=== PATIENT | female | born 1955 | race Caucasian/White ===

== ENCOUNTER 2020-06-14 13:23 | Observation (INO) | payer MEDICARE ==
[2020-06-14 15:00] VITALS: BMI 35.6
--- NOTE | 2020-06-14 15:30 | PDOC.HHP ---
Hospitalist HPI - History of Present Illness Chest pain History of Present Illness: Ms. Sparks is a 64-year-old female with past medical history of hypertension, hyperlipidemia, OR status post cardiac stenting in 2008, GI bleed in 2011, iron deficiency anemia, Stanley Sorin syndrome, nonspecific autoimmune disorder who initially presented to [facility] emergency room for chest pain. Patient reports that she recently went on a trip to [place] to see her grandchildren and after eating dinner she noticed a globus sensation in her chest associated with a chest pressure and discomfort that lasted approximately 30 minutes. Patient reports that since that first episode last week she has had several recurrent episodes including 2 episodes of this day of admission which lasted about 5 to 10 minutes. Patient reports that she gets short of breath during these episodes and feels very anxious she also feels the need to evacuate her bowels afterwards. She denies nausea vomiting or diarrhea. Denies melena or hematochezia. She does have a history of a OR with cardiac stenting of her LAD which was done in 2008. She follows with Dr. Muro of cardiology. She reports that she recently had an echocardiogram in January, but is unsure of her last stress test. In emergency room initial vital signs 139/79, 86, 18, 98.1, 97% on room air. H/H 11.3/36.0. WBC 9.5. BUN/CR 16/0.83. Glucose 84. Sodium 141, potassium 4.0. Initial troponin 0 0.010. EKG showed normal sinus rhythm with no ST changes. Patient is currently resting in bed and denies any chest pain palpitations or shortness of breath. Hospitalist ROS - Review of Systems Constitutional: reports: malaise. denies: fever, chills, sweats, weakness, other Eyes: denies: pain, vision change, conjunctivae inflammation, eyelid inflammation, redness, other ENT: denies: ear pain, ear discharge, nose pain, nose discharge, nose congestion, mouth pain, mouth swelling, throat pain, throat swelling, other Respiratory: denies: cough, dry, shortness of breath, hemoptysis, SOB with excertion, pleuritic pain, sputum, wheezing, other Cardiovascular: reports: chest pain. denies: palpitations, orthopnea, paroxysmal noc. dyspnea, edema, light headedness, other Gastrointestinal: reports: abdominal pain. denies: nausea, vomiting, diarrhea, constipation, melena, hematochezia, other Genitourinary: denies: dysuria, frequency, incontinence, hematuria, retention, other Musculoskeletal: denies: neck pain, shoulder pain, arm pain, back pain, hand pain, leg pain, foot pain, other Skin: denies: rash, lesions, liz, bruising, other Neurological: denies: weakness, numbness, incoordination, change in speech, confusion, seizures, other - Medication Medications: Home medications include Acetamide Bystolic Spironolactone Iron Magnesium Vitamin C Aspirin Patient has multiple drug allergies and has a history of Rice-Sorin syndrome which was thought to be caused by Benadryl versus ABEL inhibitor use versus NSAIDs. Patient's allergies include ABEL inhibitors, penicillins, ARB use, codeine, Benadryl, losartan, indomethacin, many others. Hospitalist History - Past Medical History Other Medical History: Past medical history of OR in 2009 with cardiac stent to LAD Hypertension Hyperlipidemia Iron deficiency anemia Stanley Sorin syndrome Nonspecific autoimmune disorder with elevated ANAquestion some type of scleroderma - Past Surgical History Other Surgical History: Past surgical history includes Yazmin fundoplication Cardiac stent to LAD in 2009 Cholecystectomy - Family History Other Family History: Patient denies family history of cardiac disease - Social History Smoking Status: Never smoker Alcohol: reports: None Drugs: reports: none Living Situation: With Family Activity level: independent ambulation - Exam General Appearance: NAD, awake alert Eye: PERRL, anicteric sclera ENT: normocephalic atraumatic, no oropharyngeal lesions, moist mucosa Neck: supple, symmetric, no JVD, no thyromegaly, no lymphadenopathy, no carotid bruit Heart: RRR, no murmur, no gallops, no rubs, normal peripheral pulses Respiratory: CTAB, no wheezes, no rales, no ronchi, normal chest expansion, no tachypnea, normal percussion Gastrointestinal: soft, non-tender, non-distended, normal bowel sounds, no palpable masses, no hepatomegaly, no splenomegaly, no bruit Extremities: no cyanosis, no clubbing, no edema Skin: normal turgor, no lesions, no rashes Neurological: cranial nerve grossly intact, normal sensation to touch, no weakness, no focal deficits, no new deficit Musculoskeletal: normal tone, normal strength, no muscle wasting Psychiatric: normal affect, normal behavior, A&O x 3 Hospitalist H&P A/P - Plan Plan: 64-year-old female past medical history of hypertension, hyperlipidemia, OR with cardiac stenting, iron deficiency anemia, autoimmune disease with elevated SAM presents for chest pain rule out. Negative cardiac markers and no ischemic changes on EKG. Chest pain Patient reports multiple episodes of chest/epigastric pain which she describes as a pressure. Initial troponin 0 0.010. EKG showed no ischemic changes normal sinus rhythm. Patient does have a significant cardiac history with stent to LAD in 2008. Patient follows with Dr. Muro. Will trend troponins Place patient on telemetry and if troponins remain low schedule patient for stress test in a.m. Plan Trend troponin Telemetry monitoring ASA 325 mg SL nitro as needed N.p.o. at midnight for stress test in morning Hypertension History of hypertension on Bystolic, spironolactone, lisinopril hydrochlorothiazide. We will continue these once dosages are confirmed. Hyperlipidemia History of hyperlipidemia on ezetimibe. Patient has allergy to statins. Iron deficiency anemia History of iron deficiency anemia. Patient's H&H stable at 11.3/36.0. We will continue home iron supplement. DVT prophylaxisSCDs Full codeMDM is patient's Case discussed with attending physician, Dr. Santana.
[2020-06-14] MEDS ORDERED: Nitroglycerin 0.4 MG TAB (25 Tab Bottle) SL PRN (16:16)
[2020-06-14] MEDS ORDERED: Aspirin 325 MG TAB PO SCH (16:30)
[2020-06-14 17:55] LABS: Troponin I Less than 0.010 ng/mL (< 0.028)
[2020-06-14 20:01] LABS: Troponin I Less than 0.010 ng/mL (< 0.028)
[2020-06-14] MEDS ORDERED: Nebivolol HCl 5 MG TAB PO SCH (21:30)
[2020-06-15 04:53] LABS: Cardiac Risk 3.3 (Less than 4.5)
[2020-06-15] MEDS ORDERED: Nebivolol HCl 5 MG TAB PO SCH ×2 (09:00→21:00)
[2020-06-15] MEDS ORDERED: Aspirin Chewable 81 MG TAB PO SCH (09:00)
[2020-06-15] MEDS ORDERED: Ezetimibe 10 MG TAB PO SCH (09:00)
[2020-06-15] MEDS ORDERED: ADENOSINE 60 MG/20 ML VIAL ONE (12:51)
[2020-06-15 12:52] LABS: SARS-CoV-2 MS2 Positive; SARS-CoV-2 N Gene Negative; SARS-CoV-2 S Gene Negative; SARS-CoV-2 by NAA Not Detected (NotDetected); SARS-CoV-2 orf1ab Negative
[2020-06-15] MEDS: Spironolactone 25 MG TAB PO SCH ×2 (13:45→13:48)
--- NOTE | 2020-06-15 14:07 | NM ---
EXAM: CARDIAC SPECT HISTORY: Chest pain, NE, coronary disease, PTCA, stent, hypertension, shortness of breath TECHNIQUE: A myocardial perfusion scan was performed using the single isotope 1 day protocol with florence hnetium 99m sestamibi. [10 mCi] was injected intravenously for the rest exam followed by 30 mCifor the stress study. Pharmacologic stress with adenosine was monitored and interpreted by the nurse practitioner FINDINGS: Homogeneous tracer distribution is seen in the myocardial segments on stress and rest image s without fixed or reversible defects. Gated SPECT LVEF: 78% Wall motion exam: Normal IMPRESSION: Normal myocardial perfusion scan
[2020-06-15 15:33] VITALS: BP 121/58; TEMP 97.7
--- NOTE | 2020-06-15 15:49 | PDOC.DS.DS ---
Provider - Provider Date of Admission: 06/14/20 14:27 Date of Discharge: 06/15/20 Admitting Provider: Alejandro Santana DO Primary Care Physician: Lily Sewell MD Course - Hospital Course Hospital Course: Discharge diagnosis: 1. Chest pain 2. Chest pain most likely secondary to musculoskeletal etiology 3. COVID-19 PCR test negative Hospital course: Patient is a pleasant 64-year-old lady who was admitted to the hospital on June 14, 2020 for chest pain. She had a nuclear stress test, which was normal. Gated SPECT left ventricular ejection fraction was 78%. Pulmonary embolism was ruled out with a negative D-dimer. She is being discharged home in a stable condition. No change was made to her preadmission home medications. Discharge destination: Home - Physical Exam Vitals: Vital Signs (12 hours) Temp Pulse Resp BP BP Pulse Ox 06/15/20 15:32 97.7 F 75 16 121/58 L 98 06/15/20 11:03 98.6 F 67 18 141/73 H 98 06/15/20 07:45 98.1 F 83 18 129/79 99 06/15/20 04:00 98.6 F 69 16 113/52 L 99 Weight Weight 188 lb 11.2 oz Physical Exam: The patient was seen and examined on the day of discharge. Patient denies chest pain or shortness of breath. Vital signs are stable. S1 and S2 are heard. Lungs are clear to auscultation bilaterally. Plan - Discharge Medications Home Medications: Medication Instructions Recorded Confirmed Type Ascorbic Acid/Multivit-Min 1,000 mg PO DAILY 06/14/20 06/14/20 History [Emergen-C 1,000 mg Packet] Aspirin Chewable [Aspirin Chewable 81 mg PO HS 06/14/20 06/14/20 History Tablet] Cholecalciferol (Vitamin D3) 1,000 units PO DAILY 06/14/20 06/14/20 History [Vitamin D3] Ezetimibe [Zetia] 10 mg PO DAILY 06/14/20 06/14/20 History Magnesium Oxide 400 mg PO PRN PRN 06/14/20 06/14/20 History Multivit,Calc,Mins/Iron/Folic 1 tablet PO DAILY 06/14/20 06/14/20 History [One-A-Day Women's] Nebivolol HCl [Bystolic] 5 mg PO HS 06/14/20 06/14/20 History Spironolactone [Aldactone] 25 mg PO DAILY 06/14/20 06/14/20 History Zinc 20 mg PO Q2DAYS 06/14/20 06/14/20 History Allergies: ABEL Inhibitors Allergy (Verified 06/14/20 14:52) ampicillin Allergy (Verified 06/14/20 14:52) ARB-Angiotensin Receptor Antagonist Allergy (Verified 06/14/20 14:52) codeine Allergy (Verified 06/14/20 14:52) diphenhydramine [From Benadryl] Allergy (Verified 06/14/20 14:52) erythromycin base Allergy (Verified 06/14/20 14:52) hydrochlorothiazide Allergy (Verified 06/14/20 14:52) hydrocodone Allergy (Verified 06/14/20 14:52) indomethacin Allergy (Verified 06/14/20 14:52) pantoprazole Allergy (Verified 06/14/20 14:52) Penicillins Allergy (Verified 06/14/20 14:52) pseudoephedrine Allergy (Verified 06/14/20 14:52) simvastatin Allergy (Verified 06/14/20 14:52) Sulfa (Sulfonamide Antibiotics) Allergy (Verified 06/14/20 14:52) Tetracyclines Allergy (Verified 06/14/20 14:52) varicella virus vaccine live Allergy (Verified 06/14/20 14:52) - Follow up Plan Referrals: Lily Sewell MD [Primary Care Provider] - 7 Days (Please follow-up within 7 days.) Disposition: HOME Quality - Care Measures CORE MEASURES:: N/A
[2020-06-15] MEDS ORDERED: FLU VACC QS2020-21(65YR UP)/PF 240 MCG/0.7 ML SYRINGE IM ONE (16:00)
--- NOTE | 2020-06-30 23:14 | STRESS ---
Acquisition Time: 2020-06-15 12:05:02 Total Exercise Time: 00:04:00 Test Indications: CHEST PAIN Medications: Protocol: ADENOSINE Max HR: 106 BPM 68% of Pred: 155 BPM Max BP: 138/070 mmHG Max Work Load: 1.0 METS RESTING ECG: NORMAL SINUS RHYTHM AT 67 BPM SYMPTOMS: DYSPNEA ON EXERTION NORMAL BLOOD PRESSURE RESPONSE ECTOPY: NONE ECG RESPONSE: NO SIGNIFICANT CHANGES INTERPRETATION: AWAIT NUCLEAR IMAGES FOR DEFINITIVE DIAGNOSIS Confirmed by Marco OBRIEN ([id number]) on 06/30/2020 11:14:31 PM Referred By: Bentley LOBATO Confirmed By:Marco OBRIEN
== END 2020-06-15 15:20 | disposition home or self-care (01) ==
LOC: 2NO 14:27
PROVIDERS: ADMIT Family Medicine; ATTEND Family Medicine
DX: R07.89 Other chest pain (principal); D89.9 Disorder involving the immune mechanism, unspecified; I10 Essential (primary) hypertension; E78.5 Hyperlipidemia, unspecified; D50.9 Iron deficiency anemia, unspecified; I25.2 Old myocardial infarction; L51.1 Stevens-Johnson syndrome; Z79.82 Long term (current) use of aspirin; Z79.899 Other long term (current) drug therapy; Z88.0 Allergy status to penicillin; Z88.1 Allergy status to other antibiotic agents; Z88.2 Allergy status to sulfonamides; Z88.5 Allergy status to narcotic agent; Z88.7 Allergy status to serum and vaccine; Z88.8 Allergy status to other drugs, medicaments and biological substances; Z95.5 Presence of coronary angioplasty implant and graft; Z20.828 Contact with and (suspected) exposure to other viral communicable diseases
CPT/HCPCS: 78452; 80061; 84484; 85379; 93017; 94760; A9500; G0378 ×2; U0003; 36415; 87635; J0153

== ENCOUNTER 2021-06-05 16:53 | Inpatient (IN) | payer MEDICARE, OTHER ==
[2021-06-05 17:13] LABS: #Eosinphils 0.1 thou/uL (0.0-0.7); #Lymphocytes 2.9 thou/uL (1.20-3.40); #Monocytes 0.7 thou/uL (0.11-0.59); #Neutrophils 5.8 thou/uL (1.40-6.50); %Basophils 0.5 % (0.0-1.0); %Eosinophils 1.5 % (0.0-10.0); %Lymphocytes 30.1 % (21.0-51.0); %Monocytes 6.9 % (0.0-10.0); Hemoglobin 10.1 g/dL (12.0-16.0); Mean Corpuscular HGB CONC 31.6 g/dL (32.0-36.0); Mean Corpuscular Hemoglobin 24.4 pg (27.0-31.0); Mean Corpuscular Volume 77.1 fL (78.0-98.0); Mean Platelet Volume 8.5 fL (7.4-10.4); Platelet Count 368 thou/uL (130-400); RBC Distribution Width 18.5 % (11.5-14.5); Red Blood Cell (RBC) Count 4.14 mill/uL (4.20-5.40); White Blood Cell (WBC) Count 9.6 thou/uL (4.8-10.8)
[2021-06-05 17:42] LABS: ALT (SGPT) 10 U/L (8-55); AST (SGOT) 14 U/L (5-34); Albumin 4.4 g/dL (3.4-4.8); Alkaline Phosphatase 62 U/L (40-110); Anion Gap 11 mmol/L (10-20); BUN (Urea Nitrogen) 13 mg/dL (9.8-20.1); Bilirubin, Total 0.6 mg/dL (0.2-1.2); Calc. Creatinine Clearance 0 mL/min (70-130); Calcium 10.3 mg/dL (7.8-10.44); Carbon Dioxide 28 mmol/L (23-31); Chloride 106 mmol/L (98-107); Globulin 3.2 g/dL (2.4-3.5); Glucose 96 mg/dL (80-115); Potassium 4.5 mmol/L (3.5-5.1); Protein, Total 7.6 g/dL (5.8-8.1); Sodium 140 mmol/L (136-145)
[2021-06-05] MEDS ORDERED: Aspirin Chewable 81 MG TAB ONE ×2 (19:56→19:57)
[2021-06-05 21:20] LABS: Troponin I Less than 0.010 ng/mL (< 0.028)
[2021-06-05] MEDS ORDERED: Ondansetron PF 4 MG/2 ML Vial IVP PRN (21:54)
[2021-06-05] MEDS ORDERED: Nitroglycerin 0.4 MG TAB (25 Tab Bottle) SL PRN (21:54)
[2021-06-05] MEDS ORDERED: Ezetimibe 10 MG TAB PO SCH (23:45)
[2021-06-05] MEDS ORDERED: Nebivolol HCl 5 MG TAB PO SCH (23:45)
[2021-06-05 23:48] VITALS: BMI 32.5
[2021-06-06 00:02] LABS: Troponin I Less than 0.010 ng/mL (< 0.028)
[2021-06-06 05:27] LABS: #Eosinphils 0.3 thou/uL (0.0-0.7); #Lymphocytes 2.3 thou/uL (1.20-3.40); #Monocytes 0.9 thou/uL (0.11-0.59); #Neutrophils 3.8 thou/uL (1.40-6.50); %Basophils 0.4 % (0.0-1.0); %Eosinophils 4.3 % (0.0-10.0); %Lymphocytes 31.1 % (21.0-51.0); %Monocytes 12.1 % (0.0-10.0); %Neutrophils 52.1 % (42.0-75.0); Hemoglobin 9.3 g/dL (12.0-16.0); Mean Corpuscular HGB CONC 30.8 g/dL (32.0-36.0); Mean Corpuscular Hemoglobin 24.5 pg (27.0-31.0); Mean Corpuscular Volume 79.4 fL (78.0-98.0); Mean Platelet Volume 8.6 fL (7.4-10.4); Platelet Count 329 thou/uL (130-400); RBC Distribution Width 18.9 % (11.5-14.5); Red Blood Cell (RBC) Count 3.81 mill/uL (4.20-5.40); White Blood Cell (WBC) Count 7.4 thou/uL (4.8-10.8)
[2021-06-06 05:44] LABS: Anion Gap 12 mmol/L (10-20); BUN (Urea Nitrogen) 13 mg/dL (9.8-20.1); Calc. Creatinine Clearance 86 mL/min (70-130); Calcium 9.6 mg/dL (7.8-10.44); Carbon Dioxide 24 mmol/L (23-31); Chloride 108 mmol/L (98-107); Glucose 83 mg/dL (80-115); Iron 16 ug/dL (50-170); Iron Binding Capacity, Total 413 mcg/dL (265-497); Potassium 3.9 mmol/L (3.5-5.1); Sodium 140 mmol/L (136-145)
[2021-06-06 05:47] LABS: Iron 16 ug/dL (50-170); Iron Binding Capacity, Total 416 mcg/dL (265-497)
[2021-06-06] MEDS: Spironolactone 25 MG TAB PO SCH (08:01)
[2021-06-06] MEDS: Aspirin Chewable 81 MG TAB PO SCH (08:01)
[2021-06-06] MEDS ORDERED: ADENOSINE 60 MG/20 ML VIAL ONE (11:59)
[2021-06-06] MEDS: Omeprazole [Omeprazole] 20 MG Capsule.Dr PO SCH (13:42)
[2021-06-06 15:38] LABS: SARS-CoV-2 PCR by NAA Not Detected (NotDetected)
[2021-06-06] MEDS: Simethicone Chewable 80 MG TAB PO PRN (16:55)
[2021-06-06] MEDS: Ezetimibe 10 MG TAB PO SCH (20:15)
[2021-06-06] MEDS: Nebivolol HCl 5 MG TAB PO SCH (21:53)
[2021-06-07] MEDS: Acetaminophen 325 MG TAB PO PRN (04:53)
[2021-06-07 05:01] LABS: #Basophils 0.1 thou/uL (0.0-0.2); #Eosinphils 0.3 thou/uL (0.0-0.7); #Lymphocytes 2.7 thou/uL (1.20-3.40); #Monocytes 0.6 thou/uL (0.11-0.59); #Neutrophils 3.8 thou/uL (1.40-6.50); %Basophils 0.8 % (0.0-1.0); %Eosinophils 4.2 % (0.0-10.0); %Lymphocytes 35.8 % (21.0-51.0); %Monocytes 8.2 % (0.0-10.0); Hemoglobin 9.8 g/dL (12.0-16.0); Mean Corpuscular HGB CONC 30.8 g/dL (32.0-36.0); Mean Corpuscular Hemoglobin 24.2 pg (27.0-31.0); Mean Corpuscular Volume 78.4 fL (78.0-98.0); Mean Platelet Volume 8.7 fL (7.4-10.4); Platelet Count 340 thou/uL (130-400); RBC Distribution Width 18.7 % (11.5-14.5); Red Blood Cell (RBC) Count 4.04 mill/uL (4.20-5.40); White Blood Cell (WBC) Count 7.4 thou/uL (4.8-10.8)
[2021-06-07 05:13] LABS: Anion Gap 9 mmol/L (10-20); BUN (Urea Nitrogen) 13 mg/dL (9.8-20.1); Calc. Creatinine Clearance 80 mL/min (70-130); Calcium 9.9 mg/dL (7.8-10.44); Carbon Dioxide 29 mmol/L (23-31); Chloride 106 mmol/L (98-107); Glucose 109 mg/dL (80-115); Potassium 3.9 mmol/L (3.5-5.1); Sodium 140 mmol/L (136-145)
[2021-06-07] MEDS: Aspirin Chewable 81 MG TAB PO SCH (08:12)
[2021-06-07] MEDS: Omeprazole [Omeprazole] 20 MG Capsule.Dr PO SCH (08:12)
[2021-06-07] MEDS: Spironolactone 25 MG TAB PO SCH (08:12)
[2021-06-07] MEDS: Simethicone Chewable 80 MG TAB PO PRN (10:13)
[2021-06-07] MEDS ORDERED: Communication Order-Pharmacy FS SCH (16:15)
[2021-06-07] MEDS: Ezetimibe 10 MG TAB PO SCH (21:41)
[2021-06-07] MEDS: Nebivolol HCl 5 MG TAB PO SCH (21:41)
[2021-06-08 05:58] LABS: #Eosinphils 0.2 thou/uL (0.0-0.7); #Lymphocytes 2.8 thou/uL (1.20-3.40); #Monocytes 0.7 thou/uL (0.11-0.59); #Neutrophils 4.4 thou/uL (1.40-6.50); %Basophils 0.5 % (0.0-1.0); %Monocytes 8.6 % (0.0-10.0); %Neutrophils 53.9 % (42.0-75.0); Mean Corpuscular HGB CONC 30.6 g/dL (32.0-36.0); Mean Corpuscular Hemoglobin 23.8 pg (27.0-31.0); Mean Corpuscular Volume 77.5 fL (78.0-98.0); Mean Platelet Volume 8.4 fL (7.4-10.4); Platelet Count 354 thou/uL (130-400); RBC Distribution Width 18.4 % (11.5-14.5); White Blood Cell (WBC) Count 8.2 thou/uL (4.8-10.8)
[2021-06-08] MEDS: Omeprazole [Omeprazole] 20 MG Capsule.Dr PO SCH (06:05)
[2021-06-08] MEDS: Aspirin Chewable 81 MG TAB PO SCH (06:06)
[2021-06-08 06:27] LABS: Anion Gap 13 mmol/L (10-20); BUN (Urea Nitrogen) 14 mg/dL (9.8-20.1); Calc. Creatinine Clearance 80 mL/min (70-130); Calcium 9.8 mg/dL (7.8-10.44); Carbon Dioxide 24 mmol/L (23-31); Chloride 106 mmol/L (98-107); Glucose 111 mg/dL (80-115); Potassium 3.9 mmol/L (3.5-5.1); Sodium 139 mmol/L (136-145)
[2021-06-08] MEDS ORDERED: Communication Order-Pharmacy FS SCH (09:00)
[2021-06-08] MEDS: Sodium Chloride 0.9% 1,000 ML IV SCH ×2 (09:24→17:53)
[2021-06-08] MEDS ORDERED: Fentanyl 100 MCG/2 ML VIAL ONE (09:46)
[2021-06-08] MEDS ORDERED: Midazolam HCl 2 mg/2 ml Vial ONE (09:47)
[2021-06-08] MEDS ORDERED: Heparin 10,000 UNITS/ 10 ML VIAL ONE ×2 (09:49→10:47)
[2021-06-08] MEDS ORDERED: Nitroglycerin 100MG/250ML BOT 250 ML ONE (10:09)
[2021-06-08] MEDS ORDERED: Iopamidol 370 76% 100 ML VIAL ONE (10:57)
[2021-06-08] MEDS ORDERED: Iopamidol 370 76% 50 ML VIAL FS ONE (10:57)
[2021-06-08] MEDS ORDERED: Clopidogrel Bisulfate 300 MG TAB ONE (11:17)
[2021-06-08] MEDS ORDERED: Nitroglycerin 2% Ointment 1 INCH/1 GM Packet ONE (11:18)
[2021-06-08] MEDS ORDERED: Nitroglycerin 4.9 GM Bottle ONE (11:56)
[2021-06-08] MEDS ORDERED: Clopidogrel Bisulfate 300 MG TAB PO SCH (12:15)
[2021-06-08] MEDS: Simethicone Chewable 80 MG TAB PO PRN (15:29)
[2021-06-08] MEDS: Spironolactone 25 MG TAB PO SCH (17:27)
[2021-06-08] MEDS: Acetaminophen 325 MG TAB PO PRN ×2 (18:07→22:15)
[2021-06-08] MEDS: Ezetimibe 10 MG TAB PO SCH (21:28)
[2021-06-09] MEDS: Nebivolol HCl 5 MG TAB PO SCH ×2 (03:30→22:38)
[2021-06-09 05:37] LABS: #Eosinphils 0.2 thou/uL (0.0-0.7); #Lymphocytes 2.4 thou/uL (1.20-3.40); #Monocytes 0.6 thou/uL (0.11-0.59); #Neutrophils 5.4 thou/uL (1.40-6.50); %Basophils 0.5 % (0.0-1.0); %Eosinophils 2.8 % (0.0-10.0); %Lymphocytes 27.8 % (21.0-51.0); %Monocytes 6.7 % (0.0-10.0); %Neutrophils 62.2 % (42.0-75.0); Hemoglobin 9.5 g/dL (12.0-16.0); Mean Corpuscular HGB CONC 30.8 g/dL (32.0-36.0); Mean Corpuscular Hemoglobin 24.2 pg (27.0-31.0); Mean Corpuscular Volume 78.6 fL (78.0-98.0); Mean Platelet Volume 8.5 fL (7.4-10.4); Platelet Count 345 thou/uL (130-400); RBC Distribution Width 18.6 % (11.5-14.5); Red Blood Cell (RBC) Count 3.91 mill/uL (4.20-5.40); White Blood Cell (WBC) Count 8.7 thou/uL (4.8-10.8)
[2021-06-09 05:55] LABS: ALT (SGPT) 9 U/L (8-55); AST (SGOT) 14 U/L (5-34); Alkaline Phosphatase 53 U/L (40-110); Anion Gap 11 mmol/L (10-20); BUN (Urea Nitrogen) 9 mg/dL (9.8-20.1); Bilirubin, Total 1.5 mg/dL (0.2-1.2); Calc. Creatinine Clearance 82 mL/min (70-130); Calcium 9.2 mg/dL (7.8-10.44); Carbon Dioxide 25 mmol/L (23-31); Chloride 107 mmol/L (98-107); Globulin 2.5 g/dL (2.4-3.5); Glucose 105 mg/dL (80-115); Potassium 4.1 mmol/L (3.5-5.1); Protein, Total 6.5 g/dL (5.8-8.1); Sodium 139 mmol/L (136-145)
[2021-06-09 06:05] LABS: Troponin I 0.108 ng/mL (< 0.028)
[2021-06-09] MEDS: Aspirin Chewable 81 MG TAB PO SCH (09:18)
[2021-06-09] MEDS: Ferrous Sulfate 325 MG TAB PO SCH (09:18)
[2021-06-09] MEDS: Clopidogrel Bisulfate 75 MG TAB PO SCH (09:19)
[2021-06-09] MEDS: Omeprazole [Omeprazole] 20 MG Capsule.Dr PO SCH (09:19)
[2021-06-09] MEDS ORDERED: Fentanyl 100 MCG/2 ML VIAL ONE ×2 (13:39→16:17)
[2021-06-09] MEDS: Fentanyl 100 MCG/2 ML VIAL SLOW IVP SCH ×2 (13:47→13:56)
[2021-06-09] MEDS: Fentanyl 100 MCG/2 ML VIAL SLOW IVP PRN ×4 (14:11→14:57)
[2021-06-09] MEDS ORDERED: Fentanyl 100 MCG/2 ML VIAL SLOW IVP SCH (14:25)
[2021-06-09] MEDS ORDERED: Phenylephrine 10 MG/ML VIAL ONE ×2 (16:17→17:02)
[2021-06-09] MEDS ORDERED: Heparin 5,000 UNITS/ML VIAL ONE (16:37)
[2021-06-09] MEDS ORDERED: Esmolol 100 MG/10 ML VIAL ONE (17:02)
[2021-06-09] MEDS ORDERED: Ondansetron PF 4 MG/2 ML Vial ONE (17:02)
[2021-06-09] MEDS ORDERED: Lidocaine 1% PF 5 ML VIAL ONE (17:02)
[2021-06-09] MEDS ORDERED: Dexamethasone 20 MG/5 ML VIAL ONE (17:02)
[2021-06-09] MEDS ORDERED: PROPOFOL 200 MG/20 ML VIAL ONE (17:02)
[2021-06-09] MEDS ORDERED: Glycopyrrolate 0.2 MG/ML 5 ML SYRINGE ONE (17:02)
[2021-06-09] MEDS ORDERED: Succinylcholine 200 MG/10 ml SYRINGE FS ONE (17:02)
[2021-06-09] MEDS ORDERED: ePHEDrine 50 MG/ML VIAL ONE (17:02)
[2021-06-09] MEDS ORDERED: EPINEPHrine 1 MG/ML AMP ONE (17:19)
[2021-06-09] MEDS ORDERED: Bupivacaine PF 0.5% 30 ML VIAL ONE ×2 (17:19→17:22)
[2021-06-09] MEDS ORDERED: Labetalol HCl 100 MG/20 ML VIAL ONE (18:15)
[2021-06-09] MEDS ORDERED: traMADol HCl 50 MG TAB PO PRN (18:52)
[2021-06-09] MEDS ORDERED: Atorvastatin Calcium 40 MG TAB PO SCH (21:00)
[2021-06-09] MEDS: Acetaminophen 325 MG TAB PO PRN (22:40)
[2021-06-09] MEDS: Ezetimibe 10 MG TAB PO SCH (22:41)
[2021-06-10 05:48] LABS: Troponin I 0.027 ng/mL (< 0.028)
[2021-06-10 09:26] LABS: #Lymphocytes 1.1 thou/uL (1.20-3.40); #Monocytes 0.6 thou/uL (0.11-0.59); #Neutrophils 9.9 thou/uL (1.40-6.50); %Eosinophils 0.1 % (0.0-10.0); %Lymphocytes 9.2 % (21.0-51.0); %Monocytes 5.2 % (0.0-10.0); %Neutrophils 85.6 % (42.0-75.0); Hemoglobin 9.2 g/dL (12.0-16.0); Mean Corpuscular HGB CONC 29.4 g/dL (32.0-36.0); Mean Corpuscular Hemoglobin 23.1 pg (27.0-31.0); Mean Corpuscular Volume 78.5 fL (78.0-98.0); Mean Platelet Volume 8.8 fL (7.4-10.4); Platelet Count 325 thou/uL (130-400); RBC Distribution Width 18.5 % (11.5-14.5); Red Blood Cell (RBC) Count 3.97 mill/uL (4.20-5.40); White Blood Cell (WBC) Count 11.6 thou/uL (4.8-10.8)
[2021-06-10 09:36] LABS: Anion Gap 11 mmol/L (10-20); BUN (Urea Nitrogen) 11 mg/dL (9.8-20.1); Calc. Creatinine Clearance 85 mL/min (70-130); Calcium 9.9 mg/dL (7.8-10.44); Carbon Dioxide 24 mmol/L (23-31); Chloride 107 mmol/L (98-107); Glucose 137 mg/dL (80-115); Potassium 4.1 mmol/L (3.5-5.1); Sodium 138 mmol/L (136-145)
[2021-06-10] MEDS: Aspirin Chewable 81 MG TAB PO SCH (09:39)
[2021-06-10] MEDS: Ferrous Sulfate 325 MG TAB PO SCH (09:39)
[2021-06-10] MEDS: Clopidogrel Bisulfate 75 MG TAB PO SCH (09:39)
[2021-06-10] MEDS: Omeprazole [Omeprazole] 20 MG Capsule.Dr PO SCH (09:39)
[2021-06-10 10:05] LABS: Hypochromia SLIGHT = 6-15 cells (100X) (0-5/hpf); MDiff Complete? YES; Microcytosis SLIGHT = 6-15 cells (100X) (0-5/hpf); Polychromasia SLIGHT = 2-3 cells (100X) (0-2/hpf)
[2021-06-10 12:25] VITALS: BP 113/57; TEMP 98.1
[2021-06-10] MEDS ORDERED: Atorvastatin Calcium 20 MG TAB PO SCH (21:00)
[2021-06-10] MEDS ORDERED: Atorvastatin Calcium 40 MG TAB PO SCH (21:00)
== END 2021-06-10 14:05 | disposition home or self-care (01) | DRG 247 ==
LOC: ERS 16:53 → 2SW 20:18 → OBSVTOIN 06-08 15:21
PROVIDERS: ADMIT Internal Medicine; ATTEND Hospitalist
PROC: 027034Z Dilation of Coronary Artery, One Artery with Drug-eluting Intraluminal Device, Percutaneous Approach (ICD-10-PCS; principal; 2021-06-08)
PROC: 4A023N7 Measurement of Cardiac Sampling and Pressure, Left Heart, Percutaneous Approach (ICD-10-PCS; 2021-06-08)
PROC: B2111ZZ Fluoroscopy of Multiple Coronary Arteries using Low Osmolar Contrast (ICD-10-PCS; 2021-06-08)
PROC: B2151ZZ Fluoroscopy of Left Heart using Low Osmolar Contrast (ICD-10-PCS; 2021-06-08)
PROC: 04QK0ZZ Repair Right Femoral Artery, Open Approach (ICD-10-PCS; 2021-06-09)
DX: T82.855A Stenosis of coronary artery stent, initial encounter (principal); I25.110 Atherosclerotic heart disease of native coronary artery with unstable angina pectoris; Z20.822 Contact with and (suspected) exposure to COVID-19; I72.4 Aneurysm of artery of lower extremity; Y84.0 Cardiac catheterization as the cause of abnormal reaction of the patient, or of later complication, without mention of misadventure at the time of the procedure; K21.9 Gastro-esophageal reflux disease without esophagitis; F41.9 Anxiety disorder, unspecified; D50.9 Iron deficiency anemia, unspecified; E78.5 Hyperlipidemia, unspecified; E66.9 Obesity, unspecified; Y83.1 Surgical operation with implant of artificial internal device as the cause of abnormal reaction of the patient, or of later complication, without mention of misadventure at the time of the procedure; Z88.1 Allergy status to other antibiotic agents; Z88.5 Allergy status to narcotic agent; Z88.8 Allergy status to other drugs, medicaments and biological substances; Z88.0 Allergy status to penicillin; Z88.2 Allergy status to sulfonamides; Z88.7 Allergy status to serum and vaccine; Z98.84 Bariatric surgery status; Z79.899 Other long term (current) drug therapy; Z79.82 Long term (current) use of aspirin; Z95.5 Presence of coronary angioplasty implant and graft; Z90.49 Acquired absence of other specified parts of digestive tract; Z82.49 Family history of ischemic heart disease and other diseases of the circulatory system; Z83.3 Family history of diabetes mellitus; Z87.891 Personal history of nicotine dependence; Z86.16 Personal history of COVID-19; I25.2 Old myocardial infarction; Z68.31 Body mass index [BMI] 31.0-31.9, adult
CPT/HCPCS: 36415; 71045; 76936; 78452; 80048; 80053; 82274; 82728; 83540; 83550; 84484; 85025; 85347; 85379; 86850; 86900; 86901; 92928; 93005; 93010; 93017; 93458; 93798; 99152; 99153; A9500; C1769; C1874; C9600; G0378; J0153; J0171; J1100; J1644; J2250; J2370; J2405; J2704; J3010; J3490; J7050; Q9967; S0020; U0003; U0005

== ENCOUNTER 2023-05-31 11:22 | Outpatient (CLI) | payer MEDICARE | END 2023-05-31 11:23 | disposition home or self-care (01) | LOC: ULT 11:22 | PROVIDERS: ATTEND Internal Medicine Gastroenterology | DX: K21.9 Gastro-esophageal reflux disease without esophagitis (principal); R14.0 Abdominal distension (gaseous); R19.8 Other specified symptoms and signs involving the digestive system and abdomen; K76.0 Fatty (change of) liver, not elsewhere classified | CPT/HCPCS: 76700 ==